=== PATIENT | female | born 1945 | race Caucasian/White ===

== ENCOUNTER → 2018-03-26 19:59 | Outpatient (CLI) | payer MEDICARE, OTHER, SELFPAY ==
[2018-03-26 20:12] LABS: Appearance Urine UA CLEAR; Bilirubin Urine UA NEGATIVE (NEGATIVE); Color Urine UA YELLOW; Glucose Urine UA NEGATIVE (Negative); Ketones Urine UA NEGATIVE (NEGATIVE); Leukocyte Esterase Urine UA NEGATIVE (NEGATIVE); Nitrite Urine UA NEGATIVE (NEGATIVE); Occult Blood Urine UA TRACE-INTACT (Negative); Protein Urine UA NEGATIVE (Negative); Specific Gravity Urine UA 1.015 (1.000-1.035); Urobilinogen Urine UA 0.2 E.U./dL (0.2); pH Urine UA 7.5 (4.5-8.0)
[2018-03-26 20:19] LABS: Amorphous Sediment Urine 1+; Culture Indicated Urine Cult Not Indicated; RBC Urine 0-1/HPF (0-5/HPF); Squamous Epithelial Cell Urine 0-1 /HPF; WBC Urine 0-1/HPF (0-5/HPF)
== END ==
PROVIDERS: Family Provider Internal Medicine; PCP Internal Medicine; Visit Provider Physician Assistant
DX: R30.0 Dysuria (principal)
CPT/HCPCS: 81001; 87086

== ENCOUNTER → 2018-10-13 07:59 | Outpatient (CLI) | payer MEDICARE, OTHER, SELFPAY ==
[2018-10-13 09:14] LABS: BUN Creatinine Ratio 23.3 (6-22); Blood Urea Nitrogen 14 mg/dL (7-17); Calcium 9.5 mg/dL (8.4-10.2); Carbon Dioxide 30 mmol/L (22-32); Chloride 99 mmol/L (98-107); Cholesterol 211 mg/dL (140-199); Estimated Glomerular Filt Rate > 60.0 mL/min (>60); Glucose 104 mg/dL (80-110); HDL Cholesterol 77 mg/dL (40-60); HEMOLYSIS < 15 (0-50); LDL Cholesterol Calculated 118 mg/dL (<100); Potassium 4.1 mmol/L (3.4-5.1); Sodium 139 mmol/L (137-145); Triglycerides 78 mg/dL (35-150)
[2018-10-13 09:49] LABS: Ferritin 83.2 ng/mL (11.1-264)
== END ==
PROVIDERS: Family Provider Internal Medicine; PCP Internal Medicine; Visit Provider Internal Medicine
DX: G25.81 Restless legs syndrome (principal); Z00.00 Encounter for general adult medical examination without abnormal findings
CPT/HCPCS: 36415; 80048; 80061; 82728

== ENCOUNTER 2018-12-26 13:56 | Day surgery (SDC) | payer MEDICARE, OTHER, SELFPAY ==
--- NOTE | 2018-12-26 | PATH_ITS ---
[facility] Accession Number: [id number] . 01 Material submitted: . PART A: ASCENDING COLON POLYP PART B: TRANSVERSE COLON POLYP . 02 Diagnosis: A. Ascending Colon, Polyp, Biopsy: Tubular adenoma. . B. Transverse Colon, Polyp, Biopsy: Tubular adenoma. MRV/12/28/2018 . 02 Electronically signed: . Sandy Olivares MD, Pathologist NPI- [id number] . 01 Gross description: . Part A: ASCENDING COLON POLYP: Received in formalin is 1 fragment(s) of [place], soft tissue measuring 0.6 x 0.5 x 0.3 cm submitted entirely in 1 cassette(s) Part B: TRANSVERSE COLON POLYP: Received in formalin is 1 fragment(s) of [place], soft tissue measuring 0.5 x 0.4 x 0.3 cm submitted entirely in 1 cassette(s) /CKI /CKI . 02 Pathologist provided ICD-10: D12.2, D12.3 . 02 CPT . 668824, [id number] Performed at: [facility] [address], [place], [place] [id number] MD Yoel Ledezma MD Phone: [phone] Performed at: 02 [facility] [address] [place], [place] [id number] MD Sandy Olivares MD Phone: [phone]
[2018-12-26 15:28] VITALS: BP 154/75; PULSE 80; RESP 18; TEMP 37.1; O2SAT 100
[2018-12-26] MEDS: SODIUM CHLORIDE 0.9% 1,000 ML 42 ML IV (15:28)
[2018-12-26 15:30] VITALS: BMI 22.8
--- NOTE | 2018-12-26 16:07 | PM.HP.1 ---
History of Present Illness Chief complaint: [id number] Patient History Family & Social History Social History: household members spouse Tobacco & Substance use: Smoking Status Never smoker Meds Home Medications Medication Instructions Recorded Confirmed Type hydrocodone-acetaminophen 5 - 325 mg PO DAILY #0 11/24/11 12/26/18 History pramipexole [Mirapex] 0.25 mg PO HS #0 11/24/11 12/26/18 History fluticasone [Flonase Allergy 1 spray INTRANASAL BID #0 02/06/13 12/26/18 History Relief] estradiol 10 mcg vaginal tablet 10 mcg VAG 2XW 03/26/18 12/26/18 History oxybutynin chloride 5 mg tablet 5 mg PO BID 03/26/18 12/26/18 History Allergies Allergy/AdvReac Type Severity Reaction Status Date / Time ciprofloxacin Allergy Severe Rash/throat Unverified 12/26/18 15:21 swelling sulfamethoxazole Allergy Mild Rash Unverified 12/26/18 15:21 [From BACTRIM] trimethoprim [From BACTRIM] Allergy Mild Rash Unverified 12/26/18 15:21 Exam Vital Signs (past 8 hours): - 12/26/18 15:28 Temperature 98.8 F Pulse Rate 80 Respiratory Rate 18 Blood Pressure 154/75 H Pulse Oximetry 100 Oxygen Delivery Method Room Air
--- NOTE | 2018-12-26 16:09 | PM.PREOP ---
Pre-operative Note Interval Note History & Physical reviewed/Exam performed by Physician: Yes Changes to H&P: Yes ASA Class (for procedural sedation): II
--- NOTE | 2018-12-26 16:09 | PM.OP.ENDO ---
Operative Date/Time/Diagnoses Date of procedure: 12/26/18 Time of procedure: 16:10 Pre-op diagnosis: See indication and findings Procedure & Clinicians Study performed: Colonoscopy Indications: Colorectal cancer screening, low risk Surgeon: Vicente Enriquez Procedure Notes Procedure in detail: After informed consent was obtained the patient was placed in the left lateral decubitus position. Video colonoscope was introduced the rectum slowly advanced to cecum. On slow withdrawal mucosa was carefully examined. The scope was removed. The patient tolerated the procedure well. Blood loss none Complications none Sedation MAC per anesthesia Findings 1. 6 mm polyp the in the ascending colon Jumbo biopsy removed completely 2. 5 mm polyp in the transverse colon Jumbo biopsy removed completely 3. Extensive left-sided diverticulosis 4. Rectal scar from previous intervention 5. Otherwise negative colonoscopy to cecum. Patient though be receiving biopsy results which will need follow-up colonoscopy in 5 years.
[2018-12-26 16:43] VITALS: BP 122/67; PULSE 68; RESP 12; TEMP 36.8; O2SAT 100
[2018-12-26 16:48] VITALS: BP 131/68; PULSE 68; RESP 13; O2SAT 100
[2018-12-26 16:53] VITALS: BP 143/67; PULSE 72; RESP 14; O2SAT 99
[2018-12-26 17:00] VITALS: BP 133/74; PULSE 66; RESP 16; TEMP 36.9; O2SAT 100
== END 2018-12-26 17:15 | disposition home or self-care (01) ==
LOC: ENDO 13:58
PROVIDERS: PCP Internal Medicine; Visit Provider Internal Medicine Gastroenterology
PROC: 0DJD8ZZ Inspection of Lower Intestinal Tract, Via Natural or Artificial Opening Endoscopic (ICD-10-PCS; CPT 45378; principal; 2018-12-26 15:00)
DX: Z12.11 Encounter for screening for malignant neoplasm of colon (principal); K57.30 Diverticulosis of large intestine without perforation or abscess without bleeding; D12.2 Benign neoplasm of ascending colon; D12.3 Benign neoplasm of transverse colon
CPT/HCPCS: 45380; 88305; J2250; J2704; J3010

== ENCOUNTER → 2019-01-19 18:41 | Outpatient (CLI) | payer MEDICARE, OTHER, SELFPAY | PROVIDERS: PCP Internal Medicine; Visit Provider Physician Assistant | DX: N39.0 Urinary tract infection, site not specified (principal) | CPT/HCPCS: 87077; 87086; 87186 ==

== ENCOUNTER → 2020-01-02 08:40 | Outpatient (CLI) | payer MEDICARE, OTHER, SELFPAY ==
--- NOTE | 2020-01-02 08:48 | DI.CT.S_ITS ---
PROCEDURE: CT SINUS SCREEN WO CON INDICATIONS: Acute recurrent pansinusitis TECHNIQUE: Noncontrast 3.0 mm axial images acquired from the frontal sinuses to the mid-sella, with coronal and sagittal reformats. For radiation dose reduction, the following was used: automated exposure control, adjustment of mA and/or kV according to patient size. COMPARISON: [facility], CR, SINUSES 1 OR 2 VIEWS, 12/20/2012, 11:28. [facility], CT, SINUS SCREEN WO CONTRAST, 02/19/2013, 11:14. [facility], CT, SINUS SCREEN WO CONTRAST, 03/25/2015, 8:21. FINDINGS: Image quality: Excellent. Maxillary Sinuses: Postoperative changes are seen, with bilateral antrectomy. Sinuses are clear. Ethmoid Air Cells: No bony remodeling or destruction. Sinuses are clear. Sphenoid Sinuses: No bony remodeling or destruction. Sinuses are clear. Frontal Sinuses: No bony remodeling or destruction. Sinuses are clear. Ostiomeatal Complexes: Removed. Miscellaneous: Visualized intra-orbital contents are normal. No taran bullosa or paradoxical turbinate curvature. There is mild S-shaped nasal septal deviation. IMPRESSION: No active paranasal sinus disease is seen. Prior postoperative change with bilateral antrectomy with removal of the ostiomeatal complexes. Dictated by: Rio Obrien M.D. on 01/02/2020 at 8:28 Approved by: Rio Obrien M.D. on 01/02/2020 at 8:29
== END ==
PROVIDERS: PCP Internal Medicine; Referring Provider Otolaryngology; Visit Provider Otolaryngology
DX: J01.41 Acute recurrent pansinusitis (principal)
CPT/HCPCS: 70486

== ENCOUNTER → 2020-01-10 06:59 | Outpatient (CLI) | payer MEDICARE, OTHER, SELFPAY ==
[2020-01-10 08:53] LABS: Alanine Aminotransferase 25 IU/L (<35); Albumin 4.4 g/dL (3.5-5.0); Albumin Globulin Ratio 1.6 (1.0-2.8); Alkaline Phosphatase 68 U/L (38-126); Aspartate Aminotransferase 31 IU/L (14-36); BUN Creatinine Ratio 28.3 (6-22); Blood Urea Nitrogen 17 mg/dL (7-17); Calcium 9.6 mg/dL (8.4-10.2); Carbon Dioxide 29 mmol/L (22-32); Chloride 100 mmol/L (98-107); Cholesterol 207 mg/dL (140-199); Estimated Glomerular Filt Rate > 60.0 mL/min (>60); Globulin 2.7 g/dL (1.7-4.1); Glucose 90 mg/dL (80-110); HDL Cholesterol 72 mg/dL (40-60); HEMOLYSIS < 15 (0-50); LDL Cholesterol Calculated 119 mg/dL (<100); Potassium 4.5 mmol/L (3.4-5.1); Sodium 136 mmol/L (137-145); Total Protein 7.1 g/dL (6.3-8.2); Triglycerides 78 mg/dL (35-150)
== END ==
PROVIDERS: PCP Internal Medicine; Referring Provider Internal Medicine; Visit Provider Internal Medicine
DX: E78.5 Hyperlipidemia, unspecified (principal); M81.0 Age-related osteoporosis without current pathological fracture
CPT/HCPCS: 36415; 80053; 80061

== ENCOUNTER → 2020-03-19 15:46 | Outpatient (CLI) | payer MEDICARE, OTHER, SELFPAY ==
--- NOTE | 2020-03-19 | DI.ECHO.S_ITS ---
[place] +---------+ [facility] +---------+ : : [address] : : : : [id number] : : : : Phone: [phone]+ Echocardiogram Report + + :Name: FREDA GAY Study Date: 03/19/2020 Height: 67.5 in: :[facility] Weight: 156 lb : : Gender: Female BSA: 1.8 m2 : :: 1945 Age: 74 yrs BP: 112/74 mmHg: :Reason For Study: SYNCOPE : :Ordering Physician: Marina LandPerformed By: Dona Warner : :Referring: MARINA LAND : + + Interpretation Summary Normal sinus rhythm. Normal LV size, wall thickness, wall motion and LV systolic function. EF is 55-60%. Normal chamber sizes. No significant valvular abnormalities. No prior study available for comparison. Procedure: A two-dimensional transthoracic echocardiogram with color flow and Doppler was performed. The study quality was technically adequate. There is no prior echocardiogram noted for this patient. The patient was in normal sinus rhythm during the exam. Left Ventricle: The left ventricle is normal in size and wall thickness. The ejection fraction is estimated to be 55-60%. Right Ventricle: The right ventricle is normal in size and function. Atria: Both atria are normal in size. There is no Doppler evidence for an interatrial shunt. Mitral Valve: The mitral valve is normal in structure and function. There is borderline mitral valve prolapse. There is mild mitral regurgitation. Aortic Valve: The aortic valve is trileaflet. The aortic valve opens well. There is no aortic valve stenosis. No aortic regurgitation is present. Tricuspid Valve: The tricuspid valve is normal in structure and function. There is mild to moderate tricuspid regurgitation. Pulmonic Valve: The pulmonic valve is normal in structure and function. There is a trace or physiologic amount of pulmonic regurgitation. Great Vessels: The aortic root is normal size. The dimensions of the ascending aorta are normal. The IVC is of normal diameter and collapses less than 50% with a sniff. This suggests a right atrial pressure of 8 mm Hg. Pericardium/ Pleura There is no pericardial effusion. There is no pleural effusion. MMode/2D Measurements & Calculations LVIDd: 4.6 cm LVOT diam: 2.0 cm LVIDs: 3.3 cm Ao root diam: 2.9 cm FS: 28.6 % asc Aorta Diam: 3.0 cm EPSS: 0.85 cm Ao Arch Diam (Prox Trans): 2.3 cm IVSd: 0.73 cm LVPWd: 0.90 cm LV cho. diameter/BSA (cm/m^2): 2.5 LV sys. diameter/BSA (cm/m^2): 1.8 LA A2 area: 13.1 cm2 RA long axis: 4.7 cm LA A4 area: 14.3 cm2 RA area: 15.0 cm2 LA length (vol): 4.0 cm RA vol: 40.9 ml LA vol: 39.3 ml RA : 22.4 ml/m2 LA vol index: 21.5 ml/m2 IVC diam: 2.1 cm RVD1 (basal): 2.9 cm TAPSE: 2.3 cm Doppler Measurements & Calculations Ao V2 max: 99.1 cm/sec LVOT Max Filipe: 89.9 cm/sec Ao V2 mean: 66.8 cm/sec LV V1 max P.2 mmHg Ao max P.9 mmHg LV V1 VTI: 16.5 cm Ao mean P.0 mmHg NESS(I,D): 2.3 cm2 Ao V2 VTI: 22.0 cm NESS(V,D): 2.7 cm2 sev ratio: 0.75 NESS indexed to BSA (cm^2/m^2): 1.2 MV E max filipe: 72.4 cm/sec TR max filipe: 245.3 cm/sec MV A max filipe: 82.7 cm/sec TR max P.2 mmHg MV E/A: 0.88 PA V2 max: 77.0 cm/sec Med Peak E' Filipe: 6.1 cm/sec PA V2 mean: 51.0 cm/sec E/E' med: 11.9 PA mean P.2 mmHg Lat Peak E' Filipe: 7.6 cm/sec E/E' lat: 9.6 E/e' average: 10.7 MV dec time: 0.33 sec SV(LVOT): 49.5 ml Electronically signed by: Kaley Larson M.D. on Reading Physician:03/20/2020 01:05 AM
[2020-03-19 17:04] LABS: Ferritin 52 ng/mL (11-264)
== END ==
PROVIDERS: PCP Internal Medicine; Referring Provider Internal Medicine; Visit Provider Internal Medicine
DX: I08.1 Rheumatic disorders of both mitral and tricuspid valves (principal); R55 Syncope and collapse; D64.9 Anemia, unspecified
CPT/HCPCS: 36415; 82728; 93306

== ENCOUNTER → 2020-04-21 13:14 | Outpatient (CLI) | payer MEDICARE, OTHER, SELFPAY | PROVIDERS: PCP Internal Medicine; Referring Provider Internal Medicine; Visit Provider Internal Medicine | DX: M81.0 Age-related osteoporosis without current pathological fracture (principal); Z78.0 Asymptomatic menopausal state | CPT/HCPCS: 77080 ==

== ENCOUNTER → 2020-05-18 09:37 | Outpatient (CLI) | payer MEDICARE, OTHER, SELFPAY ==
[2020-05-18 11:10] LABS: BUN Creatinine Ratio 22.7 (6-22); Blood Urea Nitrogen 15 mg/dL (7-17); Estimated Glomerular Filt Rate > 60.0 mL/min (>60)
== END ==
PROVIDERS: PCP Internal Medicine; Referring Provider Internal Medicine; Visit Provider Internal Medicine
DX: M81.0 Age-related osteoporosis without current pathological fracture (principal)
CPT/HCPCS: 36415; 82565; 84520

== ENCOUNTER → 2020-06-23 13:28 | Outpatient (CLI) | payer MEDICARE, OTHER, SELFPAY ==
[2020-06-23] MEDS: ZOLEDRONIC ACID 5 MG in SODIUM CHLORIDE 0.9% 100 ML 318.75 ML IV (14:09)
[2020-06-23 14:19] VITALS: BP 126/63; PULSE 65; RESP 16; TEMP 36.7; O2SAT 100
== END ==
PROVIDERS: PCP Internal Medicine; Referring Provider Internal Medicine; Visit Provider Internal Medicine
DX: M81.0 Age-related osteoporosis without current pathological fracture (principal)
CPT/HCPCS: 96365; J3489

== ENCOUNTER → 2021-05-07 09:48 | Outpatient (CLI) | payer MEDICARE, OTHER, SELFPAY ==
[2021-05-07 11:09] LABS: Ferritin 93 ng/mL (11-264)
== END ==
PROVIDERS: PCP Internal Medicine; Referring Provider Internal Medicine; Visit Provider Internal Medicine
DX: M81.0 Age-related osteoporosis without current pathological fracture (principal); G25.81 Restless legs syndrome; E78.5 Hyperlipidemia, unspecified
CPT/HCPCS: 36415; 82306; 82728

== ENCOUNTER → 2021-05-17 06:52 | Outpatient (CLI) | payer MEDICARE, OTHER, SELFPAY ==
[2021-05-17 08:34] LABS: Alanine Aminotransferase 22 IU/L (<35); Albumin 4.2 g/dL (3.5-5.0); Albumin Globulin Ratio 1.6 (1.0-2.8); Alkaline Phosphatase 58 U/L (38-126); Aspartate Aminotransferase 28 IU/L (14-36); BUN Creatinine Ratio 22.4 (6-22); Bilirubin Total 0.6 mg/dL (0.2-1.3); Blood Urea Nitrogen 15 mg/dL (7-17); Calcium 9.3 mg/dL (8.4-10.2); Carbon Dioxide 30 mmol/L (22-32); Chloride 100 mmol/L (98-107); Cholesterol 174 mg/dL (140-199); Estimated Glomerular Filt Rate > 60.0 mL/min (>60); Globulin 2.7 g/dL (1.7-4.1); Glucose 97 mg/dL (80-110); HDL Cholesterol 59 mg/dL (40-60); HEMOLYSIS < 15 (0-50); LDL Cholesterol Calculated 107 mg/dL (<100); Potassium 3.5 mmol/L (3.4-5.1); Sodium 134 mmol/L (137-145); Total Protein 6.9 g/dL (6.3-8.2); Triglycerides 42 mg/dL (35-150)
== END ==
PROVIDERS: PCP Internal Medicine; Referring Provider Internal Medicine; Visit Provider Internal Medicine
DX: E78.5 Hyperlipidemia, unspecified (principal); M81.0 Age-related osteoporosis without current pathological fracture
CPT/HCPCS: 36415; 80053; 80061

== ENCOUNTER 2022-01-03 14:30 | Outpatient (RCR) | payer MEDICARE, OTHER, SELFPAY ==
--- NOTE | 2021-11-29 10:46 | PT.OIE ---
Current Diagnoses Rectal prolapse (11/29/21) Past Surgical History (Last Reviewed 08/24/19 @ 13:24 by LEONARD Villalpando) Status post hysterectomy Visit Care Team Role Provider Type Shari Land MD Attending Provider Physician Primary Care Provider Referring Provider Specialty: Internal Medicine Address: [address] [place] [address], [address] Email: [email or web address] Physical Therapy Initial Evaluation PT-OP-A Visit Information Start: 11/29/21 09:04 Freq: Status: Active Protocol: Document 11/29/21 09:45 AMB (Rec: 11/29/21 10:35 AMB [id number]) Out-Patient Physical Therapy Visit Information Visit Information Visit Type Initial Evaluation Visit Start Time 09:45 Visit Stop Time 10:30 Total Visit Minutes 45 Visit Number 1 PT-OP-B Current Condition Start: 11/29/21 09:04 Freq: Status: Active Protocol: Document 11/29/21 09:46 AMB (Rec: 11/29/21 10:01 AMB [id number]) Current Condition History of Current Condition Onset Date 10 years Current Complaints Rectal prolapse History of Current Condition Ela attends physical therapy with symptoms she describes as mostly heaviness. Does have constipation, prolapse with activity after about a half an hour- rectal prolapse- has to push it back in. Not really leaking urine, did have a hysterectomy because of uterine prolapse. 2 vaginal deliveries with episiotomies. Restless leg is a problem- takes opiates and that impacts constipation. Treatment Goals Patient/Caregiver Goals Reduce prolapse, be able to avoid surgery Prior Functional Status Baseline Function- ADL's Independent Baseline Function- Mobility Independent Current Functional Impairments (Reported) Functional Limitations- ADL's Needs to push prolapse back up after walking, constipation Personal Factors Other Personal Factors That May Effect Hysterectomy with vaginal Therapy/Recovery repair, osteoporosis, restless leg, on oxybutynin for nocturia PT-OP-I Pelvic Floor Start: 11/29/21 09:04 Freq: Status: Active Protocol: Document 11/29/21 09:45 AMB (Rec: 12/03/21 10:46 AMB [id number]) Pelvic Floor Assessment Urine Pelvic Floor Surgery Yes: hysterectomy and vaginal repair Urinary Symptoms Prolapse Leakage Size Medium Leakage Cause Lifting,Urge Leaks Per Day 1/wk Voiding Frequency every 2-3 hours Nocturia 3 Urine Pad Type Panty Liner Bowel Bowel Surgery No Bowel Symptoms Constipation [place] Stool Chart Type 1-7 2 [place] Stool Chart Comments will take miralax if constipation gets really bad, does take metamucil Prolapse Cystocele Grade 2 Rectocele Grade 3 Perineal Descent Resting Present Bearing Present Contraction Ability Voluntary Contraction Weak Voluntary Relaxation Moderate Manual Muscle Testing Left 2 Manual Muscle Testing Right 2 Manual Muscle Testing Anterior 2 Manual Muscle Testing Posterior 2 Muscle Endurance (Seconds) 2 Number of Quick Contractions In 10 3 Seconds Comments Pelvic Floor Comments Poor long hold, but pt able to engage muscles briefly, prominent rectocele PT-OP-T Assessment and Plan Start: 11/29/21 09:04 Freq: Status: Active Protocol: Document 11/29/21 09:45 AMB (Rec: 12/03/21 10:46 AMB [id number]) Physical Therapy Assessment Rehab Potential Rehabilitation Potential Good Evaluation Complexity Number of Personal Factors/Comorbidities 1-2 Number of Body Systems Impaired 1-2 Clinical Presentation at Evaluation Stable Impairments Impairments Functional Activities,Strength Goals Two Impairment Prolapse Short Term Goal (STG) Ela will walk for 30 minutes without a feeling of pelvic heaviness. STG Duration 4 weeks One Impairment Strength Short Term Goal (STG) Ela will show improved strength by leopoldo her pelvic floor for 10 seconds without compensation. STG Duration 4 weeks Group Home Goal (LTG) Ela will contract her pelvic floor while moving from sit to stand. LTG Duration 8 weeks Assessment Summary Assessment Ela attends physical therapy with rectal prolapse symptoms made worse by constipation. She did have poor pelvic floor strength and would benefit from pelvic floor physical therapy to give her strategies to reduce her prolapse and improve her strength. Physical Therapy Plan Frequency and Duration Frequency of Treatment 1x/Week Duration of Treatment 8 weeks Plan of Care Start Date 11/29/21 Plan of Care End Date 01/31/22 Therapeutic Interventions Therapeutic Interventions Home Exercise Program,Manual Therapy,Neuromuscular Re- education,Self-Care/Home Management,Therapeutic Activities,Therapeutic Exercises Modalities Biofeedback,Cold Pack/Ice Massage,Electric Stimulation Next Visit Focus/Plan Next Note Type Treatment Note Next Visit Plan Consider sEMG, progress strengthening HEP, positions to decrease prolapse
--- NOTE | 2021-11-29 10:48 | PT.OPPOC ---
Physical, Occupational & Speech Therapy At [facility] Current Diagnoses Rectal prolapse (11/29/21) Visit Care Team Role Provider Type Shari Land MD Attending Provider Physician Primary Care Provider Referring Provider Specialty: Internal Medicine Address: [address] [place] [address], [address] Email: [email or web address] Plan Of Care PT-OP-T Assessment and Plan Start: 11/29/21 09:04 Freq: Status: Active Protocol: Document 11/29/21 09:45 AMB (Rec: 12/03/21 10:46 AMB [id number]) Physical Therapy Assessment Rehab Potential Rehabilitation Potential Good Evaluation Complexity Number of Personal Factors/Comorbidities 1-2 Number of Body Systems Impaired 1-2 Clinical Presentation at Evaluation Stable Impairments Impairments Functional Activities,Strength Goals Two Impairment Prolapse Short Term Goal (STG) Ela will walk for 30 minutes without a feeling of pelvic heaviness. STG Duration 4 weeks One Impairment Strength Short Term Goal (STG) Ela will show improved strength by leopoldo her pelvic floor for 10 seconds without compensation. STG Duration 4 weeks Mcfp Goal (LTG) Ela will contract her pelvic floor while moving from sit to stand. LTG Duration 8 weeks Assessment Summary Assessment Ela attends physical therapy with rectal prolapse symptoms made worse by constipation. She did have poor pelvic floor strength and would benefit from pelvic floor physical therapy to give her strategies to reduce her prolapse and improve her strength. Physical Therapy Plan Frequency and Duration Frequency of Treatment 1x/Week Duration of Treatment 8 weeks Plan of Care Start Date 11/29/21 Plan of Care End Date 01/31/22 Therapeutic Interventions Therapeutic Interventions Home Exercise Program,Manual Therapy,Neuromuscular Re- education,Self-Care/Home Management,Therapeutic Activities,Therapeutic Exercises Modalities Biofeedback,Cold Pack/Ice Massage,Electric Stimulation Next Visit Focus/Plan Next Note Type Treatment Note Next Visit Plan Consider sEMG, progress strengthening HEP, positions to decrease prolapse Plan of Care Dates Plan of Care Start Date 11/29/21 Plan of Care End Date 01/31/22 Electronically Signed by: Micheline Mabry, PT 12/03/21 1476 Please Sign and Return: I have reviewed this Plan of Care and certify that the skilled therapy services above are required to meet the patient?s needs. Physician Signature Date Printed Name and Credentials Clinical Instructor Signature Printed Name and Credentials
--- NOTE | 2021-12-06 15:45 | PT.OTN ---
Current Diagnoses Rectal prolapse (12/06/21) Physical Therapy Treatment Note PT-OP-A Visit Information Start: 11/29/21 09:04 Freq: Status: Active Protocol: Document 12/06/21 09:43 AMB (Rec: 12/06/21 10:32 AMB [id number]) Out-Patient Physical Therapy Visit Information Visit Information Visit Type Treatment Note Visit Start Time 09:45 Visit Stop Time 10:30 Total Visit Minutes 45 Visit Number 2 PT-OP-B Current Condition Start: 11/29/21 09:04 Freq: Status: Active Protocol: Document 11/29/21 09:46 AMB (Rec: 11/29/21 10:01 AMB [id number]) Current Condition History of Current Condition Onset Date 10 years Current Complaints Rectal prolapse History of Current Condition Ela attends physical therapy with symptoms she describes as mostly heaviness. Does have constipation, prolapse with activity after about a half an hour- rectal prolapse- has to push it back in. Not really leaking urine, did have a hysterectomy because of uterine prolapse. 2 vaginal deliveries with episiotomies. Restless leg is a problem- takes opiates and that impacts constipation. Treatment Goals Patient/Caregiver Goals Reduce prolapse, be able to avoid surgery Prior Functional Status Baseline Function- ADL's Independent Baseline Function- Mobility Independent Current Functional Impairments (Reported) Functional Limitations- ADL's Needs to push prolapse back up after walking, constipation Personal Factors Other Personal Factors That May Effect Hysterectomy with vaginal Therapy/Recovery repair, osteoporosis, restless leg, on oxybutynin for nocturia PT-OP-C Subjective Start: 11/29/21 09:04 Freq: Status: Active Protocol: Document 12/06/21 09:43 AMB (Rec: 12/06/21 10:32 AMB [id number]) OP-PT Subjective Patient Comments Patient Comments Frustrated with constipation had been taking miralax and it hasn't been helping, doesn't think she's drinking enough water. PT-OP-I Pelvic Floor Start: 11/29/21 09:04 Freq: Status: Active Protocol: Document 11/29/21 09:45 AMB (Rec: 12/03/21 10:46 AMB [id number]) Pelvic Floor Assessment Urine Pelvic Floor Surgery Yes: hysterectomy and vaginal repair Urinary Symptoms Prolapse Leakage Size Medium Leakage Cause Lifting,Urge Leaks Per Day 1/wk Voiding Frequency every 2-3 hours Nocturia 3 Urine Pad Type Panty Liner Bowel Bowel Surgery No Bowel Symptoms Constipation [place] Stool Chart Type 1-[address] [place] Stool Chart Comments will take miralax if constipation gets really bad, does take metamucil Prolapse Cystocele Grade 2 Rectocele Grade 3 Perineal Descent Resting Present Bearing Present Contraction Ability Voluntary Contraction Weak Voluntary Relaxation Moderate Manual Muscle Testing Left 2 Manual Muscle Testing Right 2 Manual Muscle Testing Anterior 2 Manual Muscle Testing Posterior 2 Muscle Endurance (Seconds) 2 Number of Quick Contractions In 10 3 Seconds Comments Pelvic Floor Comments Poor long hold, but pt able to engage muscles briefly, prominent rectocele PT-OP-Q Treatments Start: 11/29/21 09:04 Freq: Status: Active Protocol: Document 12/06/21 09:45 AMB (Rec: 12/06/21 15:44 AMB [id number]) Therapeutic Exercises Supine Exercises 2 Supine Exercise Name prop legs up on wall 1 Supine Exercise Name double knee to chest Comments prop on wedge for GERD Other Exercises 1 Other Exercise Name quadruped rock backs Comments for prolapse management Neuro Re-Education Treatment Other Activities sEMG Comments see assessment, rectal sensor overall good hold stability PT-OP-T Assessment and Plan Start: 11/29/21 09:04 Freq: Status: Active Protocol: Document 12/06/21 09:43 AMB (Rec: 12/06/21 10:32 AMB [id number]) Physical Therapy Assessment Assessment Summary Assessment Avg 8.6, resting 1, max 18 for quick flicks. With rectal sensor, pt feels weakness more posteriorly, but appreciated having the sensor so she could really feel what she was supposed to be leopoldo. With long holds avg 12, max 24 . Physical Therapy Plan Next Visit Focus/Plan Next Note Type Treatment Note Next Visit Plan progress strengthening HEP, positions to decrease prolapse
--- NOTE | 2021-12-13 15:52 | PT.OTN ---
Current Diagnoses Rectal prolapse (12/13/21) Physical Therapy Treatment Note PT-OP-A Visit Information Start: 11/29/21 09:04 Freq: Status: Active Protocol: Document 12/13/21 09:45 AMB (Rec: 12/13/21 10:24 AMB [id number]) Out-Patient Physical Therapy Visit Information Visit Information Visit Type Treatment Note Visit Start Time 09:45 Visit Stop Time 10:30 Total Visit Minutes 45 Visit Number 3 PT-OP-B Current Condition Start: 11/29/21 09:04 Freq: Status: Active Protocol: Document 11/29/21 09:46 AMB (Rec: 11/29/21 10:01 AMB [id number]) Current Condition History of Current Condition Onset Date 10 years Current Complaints Rectal prolapse History of Current Condition Ela attends physical therapy with symptoms she describes as mostly heaviness. Does have constipation, prolapse with activity after about a half an hour- rectal prolapse- has to push it back in. Not really leaking urine, did have a hysterectomy because of uterine prolapse. 2 vaginal deliveries with episiotomies. Restless leg is a problem- takes opiates and that impacts constipation. Treatment Goals Patient/Caregiver Goals Reduce prolapse, be able to avoid surgery Prior Functional Status Baseline Function- ADL's Independent Baseline Function- Mobility Independent Current Functional Impairments (Reported) Functional Limitations- ADL's Needs to push prolapse back up after walking, constipation Personal Factors Other Personal Factors That May Effect Hysterectomy with vaginal Therapy/Recovery repair, osteoporosis, restless leg, on oxybutynin for nocturia PT-OP-C Subjective Start: 11/29/21 09:04 Freq: Status: Active Protocol: Document 12/06/21 09:43 AMB (Rec: 12/06/21 10:32 AMB [id number]) OP-PT Subjective Patient Comments Patient Comments Frustrated with constipation had been taking miralax and it hasn't been helping, doesn't think she's drinking enough water. PT-OP-I Pelvic Floor Start: 11/29/21 09:04 Freq: Status: Active Protocol: Document 11/29/21 09:45 AMB (Rec: 12/03/21 10:46 AMB [id number]) Pelvic Floor Assessment Urine Pelvic Floor Surgery Yes: hysterectomy and vaginal repair Urinary Symptoms Prolapse Leakage Size Medium Leakage Cause Lifting,Urge Leaks Per Day 1/wk Voiding Frequency every 2-3 hours Nocturia 3 Urine Pad Type Panty Liner Bowel Bowel Surgery No Bowel Symptoms Constipation [place] Stool Chart Type 1-7 2 [place] Stool Chart Comments will take miralax if constipation gets really bad, does take metamucil Prolapse Cystocele Grade 2 Rectocele Grade 3 Perineal Descent Resting Present Bearing Present Contraction Ability Voluntary Contraction Weak Voluntary Relaxation Moderate Manual Muscle Testing Left 2 Manual Muscle Testing Right 2 Manual Muscle Testing Anterior 2 Manual Muscle Testing Posterior 2 Muscle Endurance (Seconds) 2 Number of Quick Contractions In 10 3 Seconds Comments Pelvic Floor Comments Poor long hold, but pt able to engage muscles briefly, prominent rectocele PT-OP-Q Treatments Start: 11/29/21 09:04 Freq: Status: Active Protocol: Document 12/13/21 09:45 AMB (Rec: 12/15/21 15:52 AMB [id number]) Therapeutic Exercises Sitting Exercises 1 Sitting Exercise Name roll in roll out Resistance @2 t band Comments 10, with PF contract Neuro Re-Education Treatment Other Activities sEMG Comments see assessment, rectal sensor overall good hold stability PT-OP-T Assessment and Plan Start: 11/29/21 09:04 Freq: Status: Active Protocol: Document 12/13/21 09:45 AMB (Rec: 12/13/21 10:24 AMB [id number]) Physical Therapy Assessment Goals Two Impairment Prolapse Short Term Goal (STG) Ela will walk for 30 minutes without a feeling of pelvic heaviness. STG Duration 4 weeks One Impairment Strength Short Term Goal (STG) Ela will show improved strength by leopoldo her pelvic floor for 10 seconds without compensation. STG Duration 4 weeks Assisted Goal (LTG) Ela will contract her pelvic floor while moving from sit to stand. LTG Duration 8 weeks Assessment Summary Assessment avg 11, max 22 for quick flicks. avg 14 for long holds . Doing better with hydration , so constipation has been a lot better this week. Improved with biofeedback as well. Physical Therapy Plan Next Visit Focus/Plan Next Note Type Treatment Note Next Visit Plan progress strengthening HEP, positions to decrease prolapse (but ok for GERD) Follow up regarding roll in roll out.
--- NOTE | 2021-12-20 14:11 | PT.OTN ---
Current Diagnoses Rectal prolapse (12/20/21) Physical Therapy Treatment Note PT-OP-A Visit Information Start: 11/29/21 09:04 Freq: Status: Active Protocol: Document 12/20/21 09:49 AMB (Rec: 12/20/21 10:31 AMB [id number]) Out-Patient Physical Therapy Visit Information Visit Information Visit Type Treatment Note Visit Start Time 09:45 Visit Stop Time 10:30 Total Visit Minutes 45 Visit Number 4 PT-OP-B Current Condition Start: 11/29/21 09:04 Freq: Status: Active Protocol: Document 11/29/21 09:46 AMB (Rec: 11/29/21 10:01 AMB [id number]) Current Condition History of Current Condition Onset Date 10 years Current Complaints Rectal prolapse History of Current Condition Ela attends physical therapy with symptoms she describes as mostly heaviness. Does have constipation, prolapse with activity after about a half an hour- rectal prolapse- has to push it back in. Not really leaking urine, did have a hysterectomy because of uterine prolapse. 2 vaginal deliveries with episiotomies. Restless leg is a problem- takes opiates and that impacts constipation. Treatment Goals Patient/Caregiver Goals Reduce prolapse, be able to avoid surgery Prior Functional Status Baseline Function- ADL's Independent Baseline Function- Mobility Independent Current Functional Impairments (Reported) Functional Limitations- ADL's Needs to push prolapse back up after walking, constipation Personal Factors Other Personal Factors That May Effect Hysterectomy with vaginal Therapy/Recovery repair, osteoporosis, restless leg, on oxybutynin for nocturia PT-OP-C Subjective Start: 11/29/21 09:04 Freq: Status: Active Protocol: Document 12/20/21 09:49 AMB (Rec: 12/20/21 10:31 AMB [id number]) OP-PT Subjective Patient Comments Patient Comments Had felt better last week, but then this week feeling more pressure, not really leaking. PT-OP-I Pelvic Floor Start: 11/29/21 09:04 Freq: Status: Active Protocol: Document 11/29/21 09:45 AMB (Rec: 12/03/21 10:46 AMB [id number]) Pelvic Floor Assessment Urine Pelvic Floor Surgery Yes: hysterectomy and vaginal repair Urinary Symptoms Prolapse Leakage Size Medium Leakage Cause Lifting,Urge Leaks Per Day 1/wk Voiding Frequency every 2-3 hours Nocturia 3 Urine Pad Type Panty Liner Bowel Bowel Surgery No Bowel Symptoms Constipation [place] Stool Chart Type 1-7 2 [place] Stool Chart Comments will take miralax if constipation gets really bad, does take metamucil Prolapse Cystocele Grade 2 Rectocele Grade 3 Perineal Descent Resting Present Bearing Present Contraction Ability Voluntary Contraction Weak Voluntary Relaxation Moderate Manual Muscle Testing Left 2 Manual Muscle Testing Right 2 Manual Muscle Testing Anterior 2 Manual Muscle Testing Posterior 2 Muscle Endurance (Seconds) 2 Number of Quick Contractions In 10 3 Seconds Comments Pelvic Floor Comments Poor long hold, but pt able to engage muscles briefly, prominent rectocele PT-OP-Q Treatments Start: 11/29/21 09:04 Freq: Status: Active Protocol: Document 12/20/21 09:49 AMB (Rec: 12/20/21 10:31 AMB [id number]) Therapeutic Exercises Sitting Exercises band UE exercises Sitting Exercise Name with PF contract Comments shldr ER, punch, bicep curl 1 Sitting Exercise Name roll in roll out Resistance @2 t band Comments 10, with PF contract Standing Exercises mini lunges Reps/Minutes 10 Comments with PF contract mini squats Reps/Minutes 10 Comments with PF contract PT-OP-T Assessment and Plan Start: 11/29/21 09:04 Freq: Status: Active Protocol: Document 12/20/21 09:49 AMB (Rec: 12/20/21 10:31 AMB [id number]) Physical Therapy Assessment Assessment Summary Assessment Standing yoga, mini lunges, sit to stand, UE band exercises, breathing with exercises and leopoldo pelvic floor with them. Discussed length of time to expect strength changes, pt seeing colorectal surgeon in 3 weeks. Physical Therapy Plan Next Visit Focus/Plan Next Note Type Treatment Note Next Visit Plan progress strengthening HEP, positions to decrease prolapse (but ok for GERD) Follow up regarding roll in roll out.
--- NOTE | 2021-12-27 15:19 | PT.OTN ---
Current Diagnoses Rectal prolapse (12/27/21) Physical Therapy Treatment Note PT-OP-A Visit Information Start: 11/29/21 09:04 Freq: Status: Active Protocol: Document 12/27/21 14:30 AMB (Rec: 12/27/21 15:19 AMB [id number]) Out-Patient Physical Therapy Visit Information Visit Information Visit Type Treatment Note Visit Start Time 14:30 Visit Stop Time 15:15 Total Visit Minutes 45 Visit Number 5 PT-OP-B Current Condition Start: 11/29/21 09:04 Freq: Status: Active Protocol: Document 11/29/21 09:46 AMB (Rec: 11/29/21 10:01 AMB [id number]) Current Condition History of Current Condition Onset Date 10 years Current Complaints Rectal prolapse History of Current Condition Ela attends physical therapy with symptoms she describes as mostly heaviness. Does have constipation, prolapse with activity after about a half an hour- rectal prolapse- has to push it back in. Not really leaking urine, did have a hysterectomy because of uterine prolapse. 2 vaginal deliveries with episiotomies. Restless leg is a problem- takes opiates and that impacts constipation. Treatment Goals Patient/Caregiver Goals Reduce prolapse, be able to avoid surgery Prior Functional Status Baseline Function- ADL's Independent Baseline Function- Mobility Independent Current Functional Impairments (Reported) Functional Limitations- ADL's Needs to push prolapse back up after walking, constipation Personal Factors Other Personal Factors That May Effect Hysterectomy with vaginal Therapy/Recovery repair, osteoporosis, restless leg, on oxybutynin for nocturia PT-OP-C Subjective Start: 11/29/21 09:04 Freq: Status: Active Protocol: Document 12/27/21 14:30 AMB (Rec: 12/27/21 15:19 AMB [id number]) OP-PT Subjective Patient Comments Patient Comments Yesterday I was on my feet more and really felt it. Today I have been doing my exercises, but have had a very stressful week so that has been challenging. PT-OP-I Pelvic Floor Start: 11/29/21 09:04 Freq: Status: Active Protocol: Document 11/29/21 09:45 AMB (Rec: 12/03/21 10:46 AMB [id number]) Pelvic Floor Assessment Urine Pelvic Floor Surgery Yes: hysterectomy and vaginal repair Urinary Symptoms Prolapse Leakage Size Medium Leakage Cause Lifting,Urge Leaks Per Day 1/wk Voiding Frequency every 2-3 hours Nocturia 3 Urine Pad Type Panty Liner Bowel Bowel Surgery No Bowel Symptoms Constipation [place] Stool Chart Type 1-7 2 [place] Stool Chart Comments will take miralax if constipation gets really bad, does take metamucil Prolapse Cystocele Grade 2 Rectocele Grade 3 Perineal Descent Resting Present Bearing Present Contraction Ability Voluntary Contraction Weak Voluntary Relaxation Moderate Manual Muscle Testing Left 2 Manual Muscle Testing Right 2 Manual Muscle Testing Anterior 2 Manual Muscle Testing Posterior 2 Muscle Endurance (Seconds) 2 Number of Quick Contractions In 10 3 Seconds Comments Pelvic Floor Comments Poor long hold, but pt able to engage muscles briefly, prominent rectocele PT-OP-Q Treatments Start: 11/29/21 09:04 Freq: Status: Active Protocol: Document 12/27/21 14:30 AMB (Rec: 12/27/21 15:19 AMB [id number]) Therapeutic Exercises Standing Exercises warrior 1 Standing Exercise Name with pelvic floor lift 1 Standing Exercise Name lifting 5#/lifting at [employer] Reps/Minutes 10 Comments cues for body mechanics mini lunges Reps/Minutes 10 Comments with PF contract mini squats Standing Exercise Name 5# Reps/Minutes 10 Comments with PF contract PT-OP-T Assessment and Plan Start: 11/29/21 09:04 Freq: Status: Active Protocol: Document 12/27/21 14:30 AMB (Rec: 12/27/21 15:19 AMB [id number]) Physical Therapy Assessment Goals Two Impairment Prolapse Short Term Goal (STG) Ela will walk for 30 minutes without a feeling of pelvic heaviness. STG Duration 4 weeks One Impairment Strength Short Term Goal (STG) Ela will show improved strength by leopoldo her pelvic floor for 10 seconds without compensation. STG Duration 4 weeks [facility]iary Goal (LTG) Ela will contract her pelvic floor while moving from sit to stand. LTG Duration 8 weeks Assessment Summary Assessment Ela is doing well. Did discuss impreza OTC pessary if she wants to consider for only during her walks. Physical Therapy Plan Next Visit Focus/Plan Next Note Type Treatment Note Next Visit Plan progress strengthening HEP, positions to decrease prolapse (but ok for GERD) Follow up regarding roll in roll out.
--- NOTE | 2022-01-03 15:24 | PT.OTN ---
Current Diagnoses Rectal prolapse (01/03/22) Physical Therapy Treatment Note PT-OP-A Visit Information Start: 11/29/21 09:04 Freq: Status: Active Protocol: Document 01/03/22 14:31 AMB (Rec: 01/03/22 15:24 AMB [id number]) Out-Patient Physical Therapy Visit Information Visit Information Visit Type Treatment Note Visit Start Time 14:30 Visit Stop Time 15:15 Total Visit Minutes 45 Visit Number 6 PT-OP-B Current Condition Start: 11/29/21 09:04 Freq: Status: Active Protocol: Document 11/29/21 09:46 AMB (Rec: 11/29/21 10:01 AMB [id number]) Current Condition History of Current Condition Onset Date 10 years Current Complaints Rectal prolapse History of Current Condition Ela attends physical therapy with symptoms she describes as mostly heaviness. Does have constipation, prolapse with activity after about a half an hour- rectal prolapse- has to push it back in. Not really leaking urine, did have a hysterectomy because of uterine prolapse. 2 vaginal deliveries with episiotomies. Restless leg is a problem- takes opiates and that impacts constipation. Treatment Goals Patient/Caregiver Goals Reduce prolapse, be able to avoid surgery Prior Functional Status Baseline Function- ADL's Independent Baseline Function- Mobility Independent Current Functional Impairments (Reported) Functional Limitations- ADL's Needs to push prolapse back up after walking, constipation Personal Factors Other Personal Factors That May Effect Hysterectomy with vaginal Therapy/Recovery repair, osteoporosis, restless leg, on oxybutynin for nocturia PT-OP-C Subjective Start: 11/29/21 09:04 Freq: Status: Active Protocol: Document 01/03/22 14:31 AMB (Rec: 01/03/22 15:24 AMB [id number]) OP-PT Subjective Patient Comments Patient Comments Ela feels like sx are getting better, has been mindful of lifting things. PT-OP-I Pelvic Floor Start: 11/29/21 09:04 Freq: Status: Active Protocol: Document 11/29/21 09:45 AMB (Rec: 12/03/21 10:46 AMB [id number]) Pelvic Floor Assessment Urine Pelvic Floor Surgery Yes: hysterectomy and vaginal repair Urinary Symptoms Prolapse Leakage Size Medium Leakage Cause Lifting,Urge Leaks Per Day 1/wk Voiding Frequency every 2-3 hours Nocturia 3 Urine Pad Type Panty Liner Bowel Bowel Surgery No Bowel Symptoms Constipation [place] Stool Chart Type 1-7 2 [place] Stool Chart Comments will take miralax if constipation gets really bad, does take metamucil Prolapse Cystocele Grade 2 Rectocele Grade 3 Perineal Descent Resting Present Bearing Present Contraction Ability Voluntary Contraction Weak Voluntary Relaxation Moderate Manual Muscle Testing Left 2 Manual Muscle Testing Right 2 Manual Muscle Testing Anterior 2 Manual Muscle Testing Posterior 2 Muscle Endurance (Seconds) 2 Number of Quick Contractions In 10 3 Seconds Comments Pelvic Floor Comments Poor long hold, but pt able to engage muscles briefly, prominent rectocele PT-OP-Q Treatments Start: 11/29/21 09:04 Freq: Status: Active Protocol: Document 01/03/22 14:31 AMB (Rec: 01/03/22 15:24 AMB [id number]) Therapeutic Exercises Sitting Exercises ball exercises Comments seated march, LAQ, cued TA and PF Standing Exercises mini squats Standing Exercise Name 5# Reps/Minutes 10 Comments with PF contract Other Exercises 1 Other Exercise Name bird dog Comments wiht PF PT-OP-T Assessment and Plan Start: 11/29/21 09:04 Freq: Status: Active Protocol: Document 01/03/22 14:31 AMB (Rec: 01/03/22 15:24 AMB [id number]) Physical Therapy Assessment Goals Two Impairment Prolapse Short Term Goal (STG) Ela will walk for 30 minutes without a feeling of pelvic heaviness. STG Duration MET One Impairment Strength Short Term Goal (STG) Ela will show improved strength by leopoldo her pelvic floor for 10 seconds without compensation. STG Duration MET Penitentiary Goal (LTG) Ela will contract her pelvic floor while moving from sit to stand. LTG Duration MET Assessment Summary Assessment Ela is meeting her goals . She feels less heaviness with walking, but can still be determined on whether or not she has a good bowel movement. She is doing her exercises, and feels like she is on a good path towards managing her symptoms. Physical Therapy Plan Discharge Physical Therapy Discharge Reasons Goals Met
== END 2022-01-06 12:32 ==
LOC: PHYS 14:30
PROVIDERS: PCP Internal Medicine; Referring Provider Internal Medicine; Visit Provider Internal Medicine
DX: K62.3 Rectal prolapse (principal)
CPT/HCPCS: 97110; 97112; 97161

== ENCOUNTER → 2023-10-20 08:36 | Outpatient (CLI) | payer MEDICARE, OTHER, SELFPAY | PROVIDERS: Visit Provider Physician Assistant | DX: R30.0 Dysuria (principal) | CPT/HCPCS: 87086 ==

== ENCOUNTER → 2023-12-05 09:26 | Outpatient (CLI) | payer OTHER, SELFPAY ==
--- NOTE | 2023-12-05 09:31 | DI.RAD.S_ITS ---
PROCEDURE: XR PELVIS 1-2V INDICATIONS: ABD BLAOTING TECHNIQUE: 1 view(s) of the pelvis acquired. COMPARISON: None. FINDINGS: Bones: No fractures or dislocations. No suspicious bony lesions. Moderate degenerative changes of the bilateral hips more pronounced on the left. Soft tissues: Visualized bowel gas pattern is nonobstructive with large amount of fecal material projecting over the regions of the ascending and descending colon.. No suspicious soft tissue calcifications. IMPRESSION: No acute osseous abnormality seen. Large amount of fecal material seen in the abdomen. Nonobstructive bowel gas pattern. Degenerative changes of the bilateral hips more pronounced on the left. Dictated by: Doug Grissom M.D. on 12/05/2023 at 12:45 Approved by: Doug Grissom M.D. on 12/05/2023 at 12:46
--- NOTE | 2023-12-05 09:31 | DI.RAD.S_ITS ---
PROCEDURE: XR ABDOMEN MIN 2V INDICATIONS: ABD BLAOTING TECHNIQUE: 2 views of the abdomen were acquired. COMPARISON: None. FINDINGS: Surgical changes and devices: None. Bowel: No pneumoperitoneum. The bowel gas pattern is nonobstructive. There is a marked amount of fecal material noted throughout the visualized colon. No evidence for abnormal wall thickening. Soft tissues: No masses; visualized solid organ contours appear normal in size. No suspicious abdominal calcifications. Bones: No suspicious bony abnormalities. IMPRESSION: Marked amount of fecal material seen throughout the colon. Nonobstructive bowel gas pattern. Findings are consistent with constipation. Dictated by: Doug Grissom M.D. on 12/05/2023 at 12:46 Approved by: Doug Grissom M.D. on 12/05/2023 at 12:50
== END ==
PROVIDERS: PCP Internal Medicine; Referring Provider Physician Assistant; Visit Provider Physician Assistant
DX: R10.2 Pelvic and perineal pain (principal); G58.8 Other specified mononeuropathies; R14.0 Abdominal distension (gaseous)
CPT/HCPCS: 72170; 74019

== ENCOUNTER → 2023-12-13 07:44 | Outpatient (CLI) | payer OTHER, SELFPAY ==
--- NOTE | 2023-12-13 07:47 | DI.US.S_ITS ---
PROCEDURE: US ABDOMEN COMPLETE INDICATIONS: Pelvic pain and abdominal bloating TECHNIQUE: Real-time scanning was performed of the abdominal and retroperitoneal organs, with image documentation. COMPARISON: Merged With [facility], CR, XR ABDOMEN MIN 2V, 12/05/2023, 9:48. FINDINGS: Liver: Liver is normal in size and homogeneous in echotexture. Gallbladder: No stones. Wall thickness is normal measuring 2 mm. Biliary ducts: Intrahepatic bile ducts are non-dilated. Extrahepatic bile duct caliber measures 5 mm. Normal is 6-7 mm or less in diameter, or 10 mm or less post-cholecystectomy. Spleen: Spleen is normal in size and homogeneous in echotexture. Kidneys: Right kidney measures 9.2 cm long. No hydronephrosis or nephrolithiasis. No solid masses. IVC: Intrahepatic inferior vena cava is patent. Miscellaneous: No free abdominal fluid. IMPRESSION: Unremarkable exam. Dictated by: Lainey Guajardo M.D. on 12/13/2023 at 15:47 Approved by: Lainey Guajardo M.D. on 12/13/2023 at 15:48
--- NOTE | 2023-12-13 07:47 | DI.US.S_ITS ---
PROCEDURE: US PELVIC COMPLETE INDICATIONS: Pelvic pain and abdominal bloating TECHNIQUE: Real-time scanning was performed of the pelvic organs, with image documentation. Additional endovaginal scanning was necessary due to incomplete visualization of the adnexal and endometrial structures by transabdominal scanning. COMPARISON: None. FINDINGS: Uterus: Surgically absent. Ovaries: Not visualized. Other: No pathologic free abdominal or pelvic fluid. Bladder contains tiny echogenic foci. IMPRESSION: Hysterectomy. Ovaries not visualized. Echogenic foci within the bladder, consistent with bladder debris. Findings can be seen in the setting of infection or post infectious state. Correlate with urinalysis. We strive to produce accurate, complete, and clear reports of imaging services. To assist us in improving patient care, this report was composed using standard report templates and voice recognition software. Therefore, it may contain abnormal punctuation, insertions and/or omissions. Occasional wrong-word or sound-alike substitutions may occur. Though we review the report and make efforts to correct it, we do recommend that the report be read carefully in proper context to recognize any text inaccuracies. Dictated by: Bill Najera M.D. on 12/13/2023 at 9:07 Approved by: Bill Najera M.D. on 12/13/2023 at 9:08
== END ==
LOC: US 07:45
PROVIDERS: PCP Internal Medicine; Referring Provider Physician Assistant; Visit Provider Physician Assistant
DX: R10.2 Pelvic and perineal pain (principal); G58.8 Other specified mononeuropathies; R14.0 Abdominal distension (gaseous); Z90.710 Acquired absence of both cervix and uterus
CPT/HCPCS: 76700; 76856

== ENCOUNTER → 2024-03-21 07:43 | Outpatient (CLI) | payer OTHER, SELFPAY ==
--- NOTE | 2024-03-21 07:44 | DI.US.S_ITS ---
PROCEDURE: US RENAL COMPLETE INDICATIONS: URINARY RETENTION/INCOMPLETE BLADDER EMPTYING TECHNIQUE: Real-time scanning was performed of the kidneys and bladder, with image documentation. COMPARISON: None. FINDINGS: Kidneys: 9.4 cm on the right. 10.3 cm on the left. No hydronephrosis or solid mass. No complicated cysts requiring follow-up. Borderline cortical thinning on the right measuring 0.9 cm. Bladder: Pre-void bladder volume is 63 mL. Post-void residual is 23 mL. Pre-void images demonstrate no intraluminal masses or stones. On pre-void images, only the right ureteral jets noted with color Doppler interrogation. (Of note, ureteral jets may not be detectable in up to 25% of cases due to insufficient differences in specific gravity between ureteral and bladder urine). Miscellaneous: No free pelvic fluid. IMPRESSION: No hydronephrosis. Postvoid residual 23 cc. Dictated by: Dani Calero M.D. on 03/21/2024 at 11:12 Approved by: Dani Calero M.D. on 03/21/2024 at 11:13
== END ==
LOC: US 07:43
PROVIDERS: PCP Internal Medicine
DX: R10.2 Pelvic and perineal pain (principal); R33.9 Retention of urine, unspecified
CPT/HCPCS: 76770

== ENCOUNTER → 2025-09-04 12:54 | Outpatient (CLI) | payer OTHER, SELFPAY | PROVIDERS: PCP Internal Medicine; Visit Provider Chiropractor | DX: R39.15 Urgency of urination (principal) | CPT/HCPCS: 87077; 87086; 87186 ==

== ENCOUNTER → 2025-10-06 16:42 | Outpatient (CLI) | payer OTHER, SELFPAY | PROVIDERS: PCP Internal Medicine; Visit Provider Physician Assistant | DX: R30.0 Dysuria (principal) | CPT/HCPCS: 87077; 87086 ==

== ENCOUNTER → 2025-10-19 09:15 | Outpatient (CLI) | payer OTHER, SELFPAY | PROVIDERS: PCP Internal Medicine; Visit Provider Nurse Practitioner Family | DX: R30.0 Dysuria (principal) | CPT/HCPCS: 87077; 87086; 87186 ==